=== PATIENT | female | born 1960 | race Caucasian/White ===

== ENCOUNTER 2019-05-13 17:17 | Inpatient (IN) ==
[2019-05-13 17:48] LABS: URINE SOURCE CLEAN CATCH
[2019-05-13 17:51] LABS: BASO# 0.02 X1000 (0.0-0.2); BASO% 0.1 % (0.0-0.8); EOS# 0.04 X1000 (0.0-0.7); EOS% 0.2 % (0.0-10.0); HEMATOCRIT 45.9 % (37.0-47.0); HEMOGLOBIN 15.6 g/dL (12.0-16.0); IMM GRAN# 0.02 X1000 (0.0-0.04); IMM GRAN% 0.1 % (0.0-0.5); LYMPH# 1.72 X1000 (1.2-3.4); LYMPH% 10.5 % (20.5-51.1); MCH 31.1 PG (27-31); MCV 91.6 FL (81-99); MONO# 0.84 X1000 (0.11-0.59); MONO% 5.1 % (1.7-9.3); MPV 10.7 FL (7.4-10.4); NEUT# 13.75 X1000 (1.4-6.5); PLT 317 X1000 (130-400); RBC 5.01 XMIL (4.2-5.4); RDW 14.3 % (11.5-14.5); WBC 16.39 X1000 (4.8-10.8)
--- NOTE | 2019-05-13 17:52 | Diag Imaging Result Doc PS360 ---
FLAT/UPRIGHT ABD/1 VIEW CHEST - 05/13/2019 INDICATION: abd pain vomiting TECHNIQUE: COMPARISON: 09/20/2016 FINDINGS: The chest is clear. There is a nonobstructive bowel gas pattern. No free air or abnormal calcifications. IMPRESSION: Negative exam. Electronically signed by Abdullahi Gillespie 05/13/2019 5:49 PM
[2019-05-13 17:58] LABS: BILIRUBIN URINE NEGATIVE (NEGATIVE); BLOOD URINE NEGATIVE (NEGATIVE); COLOR YELLOW; GLUCOSE URINE NEGATIVE (NEGATIVE); KETONE URINE 20 mg/dL (NEGATIVE); LEUKOCYTES URINE SMALL (NEGATIVE); NITRITE URINE NEGATIVE (NEGATIVE); PH URINE 7.5; PROTEIN URINE TRACE mg/dL (NEGATIVE); SP GRAVITY URINE 1.021; TURBIDITY URINE HAZY (CLEAR); UROBILINOGEN URINE NORMAL (NORMAL)
[2019-05-13 18:04] LABS: UR EPITHELIAL CELLS <10 /HPF (<10); URINE BACTERIA NEGATIVE /HPF; URINE RBC <10 /HPF (<10); URINE WBC <10 /HPF (<10)
[2019-05-13 18:08] LABS: AGAP 18; ALBUMIN 5.5 g/dL (3.5-5.0); ALKALINE PHOSPHATASE 67 U/L (32-104); BUN 11 mg/dL (8-22); CALCIUM 11.1 mg/dL (8.8-10.2); CHLORIDE 97 mmol/L (98-107); COSMO 272; CREATININE 0.6 mg/dL (0.5-0.9); ESTIMATED GFR > 60; GLUCOSE 113 mg/dL (70-104); GOT 24 U/L (10-30); GPT 20 U/L (10-36); LIPASE 39 U/L (13-60); POTASSIUM 3.8 mmol/L (3.5-5.1); SODIUM 136 mmol/L (136-145); TCO2 21 mmol/L (25-35); TOTAL PROTEIN 8.9 g/dL (6.3-8.3)
[2019-05-13] MEDS ORDERED: ZOFRAN IV ONE (20:03)
[2019-05-13] MEDS ORDERED: MORPHINE IV ONE ×2 (20:03→22:06)
[2019-05-13] MEDS ORDERED: ZOSYN 3.375 GM in NS 50 ML IV ONE (22:04)
--- NOTE | 2019-05-13 22:04 | Diag Imaging Result Doc PS360 ---
CT ABD/PELVIS W/IV CONT ONLY - 05/13/2019 INDICATION: abd pain COMPARISON: None FINDINGS: The lung bases are clear and the heart size is normal. There is a 4 mm nonobstructing stone in the lower pole of the left kidney. There are also some cysts in both kidneys. The liver, gallbladder, spleen, pancreas, and adrenals are normal. The vermiform appendix is dilated and fluid-filled measuring about 11.5 mm. There is some surrounding inflammatory stranding. No free air or free fluid. No bowel obstruction. Urinary bladder and rectum are normal. There are moderate degenerative changes of the spine. No acute or suspicious bony lesion. IMPRESSION: Acute appendicitis. This report was discussed with Champ Molina on 05/13/2019 at 10:00 PM and was readback. This exam was performed using automated exposure control, adjustment of mA or kV according to patient size, and/or use of iterative reconstruction technique Electronically signed by Abdullahi Gillespie 05/13/2019 10:02 PM
[2019-05-13] MEDS ORDERED: MORPHINE ONE (22:06)
[2019-05-13 22:09] LABS: INFLUENZA A NEGATIVE (NEGATIVE); INFLUENZA B NEGATIVE (NEGATIVE)
[2019-05-13] MEDS ORDERED: LR 1,000 ML ONE (22:36)
[2019-05-13] MEDS ORDERED: SENSORCAINE-MPF 0.5%/EPI 1:200,000 ONE (22:36)
[2019-05-13] MEDS ORDERED: HURRICAINE SPRAY (DOSE) ONE (22:48)
[2019-05-13] MEDS ORDERED: ZEMURON ONE (22:57)
[2019-05-13] MEDS ORDERED: QUELICIN (DOSE) ONE (22:58)
[2019-05-13] MEDS ORDERED: FENTANYL ONE (22:59)
[2019-05-13] MEDS ORDERED: DIPRIVAN 1% ONE (22:59)
[2019-05-13] MEDS ORDERED: ROBINUL ONE (23:00)
[2019-05-13] MEDS ORDERED: NEOSTIGMINE ONE (23:01)
[2019-05-13] MEDS ORDERED: XYLOCAINE-MPF 2% ONE ×2 (23:02→23:49)
[2019-05-13] MEDS ORDERED: ZOFRAN ONE (23:48)
[2019-05-13] MEDS ORDERED: EPHEDRINE ONE (23:58)
--- NOTE | 2019-05-14 00:52 | PROVIDER DOCUMENTATION ---
This chart was entered by Elizabet Beckham Scribe, acting as scribe for Champ Dexter CRNP. HPI-Abdominal Pain/GI Problem - General Chief Complaint: Abdominal Pain Stated Complaint: ABD PAIN, VOMITING Time Seen by Provider: 05/13/19 17:33 Source: patient Allergies/Adverse Reactions: Patient Allergies Allergy/AdvReac Type Severity Reaction Status Date / Time No Known Allergies Allergy Verified 05/13/19 19:39 Home Medications: Home Medication List Medication Instructions Recorded Confirmed Last Taken Type Celecoxib 200 mg PO DAILY 06/15/15 06/16/15 06/16/15 04:00 History Gabapentin 300 mg PO BID 06/15/15 06/16/15 06/16/15 04:00 History Hydrocodone/Acetaminophen [Griffith 1 each PO Q6H PRN PRN 06/15/15 06/16/15 06/15/15 History 10-325 Tablet] Sertraline [Zoloft] 50 mg PO DAILY 06/15/15 06/16/15 06/16/15 04:00 History Temazepam 15 mg PO HS 06/15/15 06/16/15 06/15/15 20:00 History Warfarin Sodium 1 mg PO DAILY 06/15/15 06/15/15 06/13/15 History Alprazolam [Xanax] 0.5 mg PO QHS #20 tablet 06/18/15 Unknown Rx Hydrocodone/APAP 10 mg/325 mg 1 each PO Q4H PRN PRN #30 tablet 06/18/15 Unknown Rx [Griffith-10] Mvi/Minerals Chew [Flintstones 1 each PO DAILY #100 tablet 06/18/15 Unknown Rx Complete] Exemestane 25 mg PO DAILY 05/13/19 05/13/19 Unknown History Mesalamine [Apriso] 1 cap PO DAILY 05/13/19 05/13/19 Unknown History Venlafaxine HCl [Venlafaxine HCl 1 tab PO DAILY 05/13/19 05/13/19 Unknown History ER] - History of Present Illness-ABD Nature of Presenting Problems: 58 yof c/o low abd pain , n, vomiting x 1 and diarrhea x 1 starting 1000 this am. no rectal bleed or hematemesis. pt has HTN. hx of ulcerative colitis. pt appears in pain. has elevated blood pressure. Abdominal Pain Onset Location: reports: RLQ, LLQ, suprapubic Pain Radiation: reports: no radiation Severity in ED: reports: mild Onset/Duration: reports: this morning Timing: reports: still present Activities at Onset: reports: none Modifying Factors: improves with: nothing Associated Symptoms: reports: diarrhea, nausea, vomiting Last BM: unsure Dark Stools Present?: reports: none noticed Rectal Bleeding: reports: none Rectal Pain: reports: none Emesis Description: reports: none Review of Systems - Adult - REVIEW OF SYSTEMS - ADULT Constitutional: reports: no symptoms reported. denies: fever, fatique, night sweats Eyes: reports: no symptoms reported Ears, Nose, Mouth & Throat: reports: no symptoms reported Cardiovascular: reports: no symptoms reported Respiratory: reports: no symptoms reported Gastrointestinal: reports: see HPI, abdominal pain, diarrhea, nausea, vomiting. denies: hematemesis, constipation, rectal bleeding Genitourinary: reports: no symptoms reported Musculoskeletal: reports: no symptoms reported Integumentary: reports: no symptoms reported Neurological: reports: no symptoms reported Psychiatric: reports: no symptoms reported Endocrine: reports: no symptoms reported Hematologic/Lymphatic: reports: no symptoms reported Allergic/Immunologic: reports: no symptoms reported All Other Systems: Reviewed and Negative Past History - Adult - PAST MEDICAL HISTORY-ADULT Review of Records: reports: Nursing Assessment Review, Medications Reviewed, Social history reviewed & non-contributory. Major Childhood Illnesses: reports: denies history Cardiovascular: reports: denies history Respiratory: reports: denies history Gastrointestinal: reports: other (ulcerative colitis) Obstetrical/Gynecological: reports: denies history Genitourinary: reports: denies history Musculoskeletal: reports: denies history Neurological: reports: denies history Endocrine/Immune: reports: denies history Other Conditions: reports: other cancer (left breast) - PRIOR SURGERIES/PROCEDURES Surgical/Procedure History: reports: breast - IMMUNIZATION STATUS Childhood Immunizations: See Nurse Assessment Flu Vaccine: See Nurse Assessment - FAMILY HISTORY Family History: reviewed, not pertinent - SOCIAL HISTORY Smoking: cigarettes, less than 1 pack/day Provider spent 3-5 mins advising pt. on dangers of tobacco.: Discussed manners to quit use, and f/u contacts for add'l counseling. Substance Use: alcohol Alcohol Use Frequency: occasionally Physical Exam-General - PHYSICAL EXAM-ADULT Initial Vital Signs Reviewed: Yes - CONSTITUTIONAL General Appearance: alert, mild distress. negative: cachetic, lethargic, slow to respond - EYES Eyes: PERRL/EOMI - HEAD, EARS, NOSE, MOUTH & THROAT HENMT: normocephalic/atraumatic, moist mucous membranes - NECK Neck: non-tender, full range of motion, supple, normal inspection - RESPIRATORY Respiratory: chest non-tender, lungs clear, normal breath sounds - CARDIOVASCULAR Cardiovascular: normal peripheral pulses, regular rate, rhythm, no edema, no gallop, no JVD, no murmur, other (HTN). negative: extra beats, friction rub, irregularly irregular - GASTROINTESTINAL (ABDOMEN) Abdominal Exam: normal bowel sounds, soft, no organomegaly, no pulsatile mass, tenderness (on palp generalized low abd), McBurney's point tenderness. negative: non tender, rebound - MUSCULOSKELETAL Back Exam: normal inspection Extremity: normal range of motion, non-tender, normal inspection - SKIN Integumentary: normal color, normal turgor, warm/dry - NEUROLOGIC Neurologic: grossly normal, no motor/sensory deficits - PSYCHIATRIC Psych/Mental Status: normal mood/affect, normal thought content, normal thought process, oriented x 3 Progress - PLAN OF CARE/RESULTS Progress/Plan/Lab Results: Vital Signs - 8 hr 05/13/19 17:23 05/13/19 19:18 Temperature 97.8 F Pulse Rate 79 Respiratory Rate 18 Blood Pressure 188/99 O2 Sat by Pulse Oximetry 99 Laboratory Results - last 24 hr 05/13/19 05/13/19 05/13/19 17:41 17:41 17:41 WBC 16.39 H RBC 5.01 Hgb 15.6 Hct 45.9 MCV 91.6 MCH 31.1 H MCHC 34.0 RDW Std Deviation 14.3 Plt Count 317 MPV 10.7 H Immature Gran % (Auto) 0.1 Neut % (Auto) 84.0 H Lymph % (Auto) 10.5 L [place] % (Auto) 5.1 Eos % (Auto) 0.2 Baso % (Auto) 0.1 Immature Gran # (Auto) 0.02 Neut # (Auto) 13.75 H Lymph # (Auto) 1.72 [place] # (Auto) 0.84 H Eos # (Auto) 0.04 Baso # (Auto) 0.02 Sodium 136 Potassium 3.8 Chloride 97 L Carbon Dioxide 21 L Anion Gap 18 BUN 11 Creatinine 0.6 Estimated GFR/1.73 m2 > 60 BUN/Creatinine Ratio 18 Glucose 113 H Calculated Osmolality 272 Calcium 11.1 H Total Bilirubin 0.50 AST 24 ALT 20 Alkaline Phosphatase 67 Total Protein 8.9 H Albumin 5.5 H Globulin 3.0 Albumin/Globulin Ratio 2.0 Amylase 67 Lipase 39 Urine Source Urine Color Urine Turbidity Urine pH Ur Specific [place] Urine Protein Ur Glucose (Stick) Ur Ketones (Stick) Urine Blood Urine Nitrite Urine Bilirubin Urobilinogen Dipstick Urine Leukocytes Urine WBC (Auto) Urine RBC (Auto) U Epithel Cells (Auto) Urine Bacteria (Auto) 05/13/19 17:41 WBC RBC Hgb Hct MCV MCH MCHC RDW Std Deviation Plt Count MPV Immature Gran % (Auto) Neut % (Auto) Lymph % (Auto) [place] % (Auto) Eos % (Auto) Baso % (Auto) Immature Gran # (Auto) Neut # (Auto) Lymph # (Auto) [place] # (Auto) Eos # (Auto) Baso # (Auto) Sodium Potassium Chloride Carbon Dioxide Anion Gap BUN Creatinine Estimated GFR/1.73 m2 BUN/Creatinine Ratio Glucose Calculated Osmolality Calcium Total Bilirubin AST ALT Alkaline Phosphatase Total Protein Albumin Globulin Albumin/Globulin Ratio Amylase Lipase Urine Source CLEAN CATCH Urine Color YELLOW Urine Turbidity HAZY Urine pH 7.5 Ur Specific [place] 1.021 Urine Protein TRACE A Ur Glucose (Stick) NEGATIVE Ur Ketones (Stick) 20 A Urine Blood NEGATIVE Urine Nitrite NEGATIVE Urine Bilirubin NEGATIVE Urobilinogen Dipstick NORMAL Urine Leukocytes SMALL A Urine WBC (Auto) <10 Urine RBC (Auto) <10 U Epithel Cells (Auto) <10 Urine Bacteria (Auto) NEGATIVE Orders Category Date Time Status CT ABD/PELVIS W/IV CONT ONLY [CT] Stat Exams 05/13/19 20:03 Ordered FLAT/UPRIGHT ABD/1 VIEW CHEST [RAD] Stat Exams 05/13/19 17:30 Completed AMYLASE [CHEM] Stat Lab 05/13/19 17:41 Completed CBC WITH DIFF [HEME] Stat Lab 05/13/19 17:41 Completed COMPREHENSIVE METABOLIC PANEL [CHEM] Stat Lab 05/13/19 17:41 Completed LIPASE [CHEM] Stat Lab 05/13/19 17:41 Completed URINALYSIS [URINALYSIS] Stat Lab 05/13/19 17:41 Completed Morphine Med 05/13/19 20:03 Discontinued 4 mg IV NOW ONE Ondansetron [Zofran] Med 05/13/19 20:03 Discontinued 4 mg IV NOW ONE Result Diagrams: 05/13/19 17:41 05/13/19 17:41 - XRAY 1 XRAY Study: Abdomen Impression: See EMR Report ( FLAT/UPRIGHT ABD/1 VIEW CHEST - 05/13/2019 INDICATION: abd pain vomiting TECHNIQUE: COMPARISON: 09/20/2016 F INDINGS: The chest is clear. There is a nonobstructive bowel gas pattern. No free air or abnormal calcifications. IMPRESSION: Negative exam. Electronically signed by Abdullahi Gillespie 05/13/2019 5:49 PM) - CT/MRI 1 CT Study: Abdomen, Pelvis Impression: Abnormal, See EMR Report (CT ABD/PELVIS W/IV CONT ONLY - 05/13/2019 INDICATION: abd pain COMPARISON: None FINDINGS: The lung bases are clear and the heart size is normal. There is a 4 mm nonobstructing stone in the lower pole of the left kidney. There are also some cysts in both kidneys. The liver, gallbladder, spleen, pancreas, and adrenals are normal. The vermiform appendix is dilated and fluid-filled measuring about 11.5 mm. There is some surrounding inflammatory stranding. No free air or free fluid. No bowel obstruction. Urinary bladder and rectum are normal. There are moderate degenerative changes of the spine. No acute or suspicious bony lesion. IMPRESSION: Acute appendicitis. This report was discussed with Champ Molina on 05/13/2019 at 10:00 PM and was readback. This exam was performed using automated exposure control, adjustment of mA or kV according to patient size, and/or use of iterative reconstruction technique Electronically signed by Abdullahi Gillespie 05/13/2019 10:02 PM) - CONSULTS/PCP/HOSPITALIST Notification #1 *Consult/PCP/Hospitalist*: Dr. Streeter Time Discussed: 22:06 Reason/Comments: acute appendicitis Consult Disposition: Admit Departure - Departure Date of Disposition Decision: 05/13/19 Time of Disposition Decision: 22:57 DIAGNOSIS: Acute appendicitis Qualifiers: Acute appendicitis type: unspecified acute appendicitis type Qualified Code(s): K35.80 - Unspecified acute appendicitis Disposition: ADMITTED INPATIENT 09 Certified Medical Emergency: Emergent Condition: Critical Referrals and Follow-Ups: Diego Roblero MD [Primary Care Provider] - - Critical Care Note This patient required my direct & personal management of CC.: No Attestation - Physician/ DEVON Attestation Patient care was provided by Advanced Practice Provider:: Yes Advanced Practice Provider:: Champ Dexter Advanced Practice Provider documentation review:: The Mid-level provider documentation, treatment plan and medical decision making was reviewed by the physician who agrees with all treatment and medical decision making by the MLP. The physician spent face to face time with patient:: No Advanced Practice Provider documentation review:: Supervising physician onsite and consulted in the evaluation and care of this patient. The physician did not have a face to face encounter with the patient. This chart was documented by the indicated scribe, (Elizabet Beckham Scribe) and accurately reflects the services I performed and decisions made by me, Champ Dexter CRNP, as attested by the provider's signature.
[2019-05-14] MEDS ORDERED: NORCO-7.5 ONE (01:01)
[2019-05-14] MEDS ORDERED: LR 1,000 ML ONE (01:03)
[2019-05-14] MEDS ORDERED: LR 1,000 ML IV SCH (01:38)
[2019-05-14] MEDS ORDERED: NORCO-7.5 PO PRN (01:38)
[2019-05-14] MEDS ORDERED: ZOFRAN IV PRN (01:38)
[2019-05-14] MEDS ORDERED: MORPHINE IV PRN (01:38)
--- NOTE | 2019-05-14 06:55 | OPERATIVE NOTE ---
PROCEDURE DATE: 05/14/2019 PREOPERATIVE DIAGNOSIS: Acute appendicitis. POSTOPERATIVE DIAGNOSIS: Acute appendicitis. PROCEDURE PERFORMED: Laparoscopic appendectomy. SURGEON: Sorin Streeter MD. ANESTHESIA: General. ESTIMATED BLOOD LOSS: 10 mL. COMPLICATIONS: None apparent. SPECIMENS: Appendix. FINDINGS: The appendix was acutely inflamed but did not appear to be ruptured. There was no abscess. TECHNIQUE: The patient was brought to the operating room and placed supine on the table. General anesthesia was induced. A Vance catheter was placed. She was prepped and draped in the usual sterile fashion. Quarter percent Marcaine with epinephrine was used to anesthetize our incisions. A 12 mm incision was made above the umbilicus. The fascia was exposed and incised sharply. Entry into the peritoneal cavity was obtained under direct vision with the OptiZinc Ahead device. Pneumoperitoneum was established. The camera was inserted. There was no evidence of injury to underlying structures. She was then placed in Trendelenburg and left rotation. Two 5 mm incision ports were placed in the left lower quadrant and lower suprapubic midline under direct vision. The appendix was found in the right lower quadrant. It was lifted up anteriorly. A window was created through the mesentery at the base of the appendix with the [place] forceps. The appendix was transected with an EndoGIA stapler. The appendiceal mesentery was transected in the same fashion. Minimal bloody oozing from the staple line was controlled with cautery. The appendix was placed in an EndoCatch bag. I then irrigated and suctioned out the old blood and irrigation. There were no signs of any further bleeding. The bag was brought out through the umbilical port site. The abdomen was desufflated. The ports were removed. The umbilical fascia was closed with a [id number] Vicryl. The skin was closed with 4-0 subcuticular, Biosyn, and Steri-Strips. There were no apparent complications. She was awakened in stable condition and transferred to the recovery room. cc: Sorin Streeter MD
[2019-05-14 12:19] VITALS: BP 118/74
--- NOTE | 2019-05-14 15:17 | GENERAL SURGERY PROGRESS NOTE ---
DATE: 05/14/2019 SUBJECTIVE: The patient is feeling better. Her pain is improved. She is tolerating a diet. She is ambulating. OBJECTIVE: Vital Signs: She is afebrile. Vital signs are stable. General: She is awake, alert, oriented x3. No acute distress. Gastrointestinal: Soft, nondistended, appropriately tender. Incisions are clean, dry, and intact. ASSESSMENT AND PLAN: A 58-year-old female status post laparoscopic appendectomy. She will be discharged home. Instructions were given. cc: Sorin Streeter MD
== END 2019-05-14 14:15 | disposition home or self-care (01) | DRG 342 ==
LOC: P.ED 17:17 → 4N 22:40
PROVIDERS: ADMIT Surgery; ATTEND Surgery